=== PATIENT | male | born 1970 | race Caucasian/White ===

== ENCOUNTER 2021-02-15 20:53 | Emergency (ER) | payer BC, OTHER ==
[~2021-02-15] VITALS: Ht 180.3 cm; Wt 97.5 kg
--- NOTE | 2021-02-15 21:09 | ED EENT ---
History of Present Illness General Chief Complaint: Oral/Throat Problems Stated Complaint: SORE THROAT/CHILLS Source: patient Exam Limitations: no limitations History of Present Illness Date Seen by Provider: Feb 15, 2021 Time Seen by Provider: 20:56 Initial Comments Patient presents ER by private conveyance with 1 week of sore throat. No earache fever chills nausea vomiting cough or shortness of air. No known sick contacts. He is concerned because it has not gotten better yet. He is not on any medicines but he did try some Mucinex for it today with no relief. Allergies and Home Medications Patient Home Medication List Home Medication List Reviewed: Yes Review of Systems Review of Systems Constitutional: No chills, No diaphoresis Eyes: Denies Blindness, Denies Drainage Ears: Denies Dizziness, Denies Pain Nose: denies clots, denies congestion Mouth: denies clots; pain (Painful swallowing), swelling Throat: pain, swelling Respiratory: No cough, No short of breath Cardiovascular: No chest pain, No edema Past Orwhjyf-Lbwuyp-Bkuykt Hx Patient Social History Alcohol Use: Denies Use Smoking Status: Never a Smoker Physical Exam Vital Signs Vital Signs - First Documented 02/15/21 21:00 Temp 37.8 Pulse 98 Resp 20 B/P (MAP) 151/93 (112) Pulse Ox 96 O2 Delivery Room Air Height, Weight, BMI Height: '" Weight: lbs. oz. kg; BMI Method: General Appearance: WD/WN, no apparent distress Eyes: bilateral eye normal inspection, bilateral eye PERRL, bilateral eye EOMI Ears: bilateral ear auricle normal, bilateral ear canal normal, bilateral ear TM normal Nose: normal inspection; No active bleeding, No discharge Mouth/Throat: tonsillar swelling (Nearly kissing tonsils with no exudate but injection and erythema bilaterally) Neck: full range of motion, lymphadenopathy (R), lymphadenopathy (L) Cardiovascular: normal peripheral pulses, regular rate, rhythm Gastrointestinal: non tender, soft Neurologic/Psychiatric: alert, oriented x 3 Skin: normal color, warm/dry Progress/Results/Core Measures Results/Orders Lab Results Laboratory Tests Test 02/15/21 21:05 Range/Units Group A Streptococcus Screen NEGATIVE NEGATIVE My Orders Orders - TRE ONEILL Rapid Strep A Screen (02/15/21 21:05) Vital Signs/I&O 02/15/21 21:00 Temp 37.8 Pulse 98 Resp 20 B/P (MAP) 151/93 (112) Pulse Ox 96 O2 Delivery Room Air Progress Progress Note : Time: 21:08 Progress Note Rapid strep. Departure Impression Primary Impression: Tonsillopharyngitis Disposition: HOME, SELF-CARE Condition: Stable Departure-Patient Inst. Decision time for Depature: 21:56 Patient Instructions: Strep Throat (DC) Add. Discharge Instructions: Salt water gargles every hour as necessary for swelling of the throat. Tea with honey and lemon as necessary for sore throat. Throat lozenges such as [place] with menthol can be helpful. Drink plenty of fluids. We should have a result of your throat culture by Thursday or Thursday of next week. Your primary care doctor can follow-up the results with you. All discharge instructions reviewed with patient and/or family. Voiced understanding. Work/School Note: Work Release Form Date Seen in the Emergency Department: Feb 15, 2021 Return to Work: Feb 18, 2021 Restrictions: No Restrictions Other Restrictions Listed Below: May return to work when 24 hours symptom- free TRE ONEILL Feb 15, 2021 21:08
[2021-02-15 22:00] VITALS: BP 151/93
== END 2021-02-15 22:00 | disposition home or self-care (01) ==
LOC: ER 20:57
DX: J03.90 Acute tonsillitis, unspecified (principal)
CPT/HCPCS: 87430; 99284